=== PATIENT | female | born 1995 | race Caucasian/White ===

== ENCOUNTER 2021-04-09 12:44 | Outpatient (CLI) | payer BC, SELFPAY ==
--- NOTE | ~2021-04-09 | US_ITS ---
EXAMINATION: US OB /maternal detail DATE: 04/09/2021 14:10 INDICATION: survey TECHNIQUE: Multiple obstetric sonographic images performed. FINDINGS: No prior studies for comparison. There is a single living fetus in breech presentation. The placenta is posterior without placenta pr evia. Amniotic fluid volume is subjectively normal. cardiac activity and movement is noted with a heart rate of 1:30 beats per minute. The following anatomy was identified as normal: 4 chamber heart 3 vessel cord cord insertion kidneys urinary bladder stomach spine diaphragm ventricles cisterna magna cerebellum The following biometric data were obtained: BPD: 55mm corresponds to gestational age 22 weeks 6 days. Head circumference: 207 mm corresponds to gestational age 22 weeks 6 days. Abdominal circumference: 182 mm corresponds to gestational age 23 weeks 0 days. Femur length: 39 mm corresponds to gestational age 22 weeks 3 days. Head circumference to abdominal circumference ratio: 1.14 (normal range for expected gestational age is 1.05-1.21). Estimated weight: 534 grams +/- 80 grams using Hadlock method, 32%. IMPRESSION: 1: Single living intrauterine with an estimated gestational age of 22weeks 6days by current ultrasound measurements, with an EDC of 08/07/2021 in breech presentation. 2. Normal survey. Reviewed, dictated and finalized at location A. CAR ATTENDANT IMPRESSION: 1: Single living intrauterine with an estimated gestational age of 22 weeks 6days by current ultrasound measurements, with an EDC of 08/07/2021 in wilder ech presentation. 2. Normal survey.
== END 2021-04-09 12:45 | disposition home or self-care (01) ==
LOC: ANHIMG 12:52
PROVIDERS: Visit Provider Obstetrics & Gynecology
DX: Z34.92 Encounter for supervision of normal pregnancy, unspecified, second trimester (principal); Z3A.22 22 weeks gestation of pregnancy
CPT/HCPCS: 76805

== ENCOUNTER 2021-07-23 13:09 | Outpatient (CLI) | payer BC, SELFPAY ==
[2021-07-23 19:32] LABS: Basophils Percent Auto 0.3 % (0.2-1.2); Eosinophils Absolute Auto 0.1 K/mm3 (0-0.3); Eosinophils Percent Auto 1.1 % (0-4.4); Hematocrit 41.4 % (37.0-47.0); Hemoglobin 14.3 g/dL (12.0-15.0); Immature Granulocyte Absolute 0.04 K/mm3 (0.00-0.031); Immature Granulocyte Percent A 0.4 % (0-0.5); Lymphocytes Absolute Auto 1.43 K/mm3 (0.9-3.2); Lymphocytes Percent Auto 13.4 % (18.3-44.2); Mean Corpuscular HGB Conc 34.5 g/dl (32-36); Mean Corpuscular Hemoglobin 32.6 pg (26-34); Mean Corpuscular Volume 94.3 fl (80-100); Mean Platelet Volume 11.8 fl (7.4-10.4); Monocytes Absolute Auto 0.5 K/mm3 (0.1-0.6); Monocytes Percent Auto 4.6 % (2.6-8.5); Neutrophils Absolute Auto 8.6 K/mm3 (1.3-6.7); Neutrophils Percent Auto 80.2 % (45.5-73.1); Platelet Count Result 189 k/mm3 (150-375); Red Blood Count 4.39 M/mm3 (4.2-5.4); Red Cell Distribution Width 13.1 % (11.5-14.5); White Blood Count 10.7 K/mm3 (4.5-10.0)
[2021-07-23 19:40] LABS: Glucose 1 Hour PP 50gm Dose 84 mg/dL
[2021-07-23 21:04] LABS: HIV 1/2 Ab P24 Ag Result Negative (Negative)
[2021-07-23 21:43] LABS: Hepatitis C Virus Antibody Negative (Negative)
[2021-07-24 08:25] LABS: Rapid Plasma Reagin Non-Reactive (NonReactive)
[2021-07-24] MEDS: RHO(D) IMMUNE GLOBULIN 300 MCG/2 ML SYRINGE IM (14:55)
== END 2021-07-23 13:10 | disposition home or self-care (01) ==
PROVIDERS: Visit Provider Obstetrics & Gynecology
DX: Z34.90 Encounter for supervision of normal pregnancy, unspecified, unspecified trimester (principal); Z3A.00 Weeks of gestation of pregnancy not specified
CPT/HCPCS: 36415; 82947; 85025; 85461; 86592; 86703; 86803; 90384; 96372; G0432; J2790

== ENCOUNTER 2021-07-30 15:17 | Outpatient (CLI) | payer BC, SELFPAY ==
--- NOTE | ~2021-07-30 | US_ITS ---
EXAMINATION: US OB follow up DATE: 07/30/2021 16:31 INDICATION: Evaluate growth TECHNIQUE: Real-time transabdominal obstetric ultrasound. FINDINGS: Comparison ultrasound dated 04/09/2021 There is a single living fetus in vertex presentation. The placenta is posterior without placenta pr evia. cardiac activity and movement is noted with a heart rate of 134 beats per minute. T he amniotic fluid volume is normal. NESHA measures 16.3 cm. The following biometric data were obtained: BPD: 86mm corresponds to gestational age 34 weeks 4 days. Head circumference: 318mm corresponds to gestational age 35 weeks 5 days. Abdominal circumference: 305mm corresponds to gestational age 34 weeks 3 days. Femur length: 71mm corresponds to gestational age 36 weeks 3 days. Estimated weight: 2605grams +/- 391grams, 3.2% using Hadlock method. IMPRESSION: 1. Single living intrauterine in vertex presentation with an estimated gestational age of 38 weeks 6 days by inititial ultrasound. Decreased interval growth with current measurements co rresponding to 35 week 2 day gestation. Estimated weight corresponds to 3.2%, small for gestati onal age. 2. Normal placenta. Reviewed, dictated and finalized at location B. IMPRESSION: 1. Single living intrauterine in vertex presentation with an estimat ed gestational age of 38 weeks 6 days by inititial ultrasound. Decreased interv al growth with current measurements corresponding to 35 week 2 day gestat ion. Estimated weight corresponds to 3.2%, small for gestational age. 2. Normal placenta.
== END 2021-07-30 15:18 | disposition home or self-care (01) ==
LOC: ANHIMG 15:19
PROVIDERS: Visit Provider Obstetrics & Gynecology
DX: O36.5930 Maternal care for other known or suspected poor fetal growth, third trimester, not applicable or unspecified (principal); Z3A.35 35 weeks gestation of pregnancy
CPT/HCPCS: 76816

== ENCOUNTER 2021-07-31 14:19 | Inpatient (IN) | payer BC, SELFPAY ==
[2021-07-31] VITALS (21 sets, daily range): BP systolic 104–136; BP diastolic 63–98; PULSE 47–119; RESP 14–18; TEMP 36.7–37.4; BMI 34.8
[2021-07-31 15:30] LABS: Basophils Absolute Auto 0.1 K/mm3 (0.0-0.1); Basophils Percent Auto 0.5 % (0.2-1.2); Eosinophils Absolute Auto 0.1 K/mm3 (0-0.3); Eosinophils Percent Auto 1.2 % (0-4.4); Hematocrit 40.9 % (37.0-47.0); Immature Granulocyte Absolute 0.03 K/mm3 (0.00-0.031); Immature Granulocyte Percent A 0.3 % (0-0.5); Lymphocytes Absolute Auto 1.39 K/mm3 (0.9-3.2); Lymphocytes Percent Auto 14.2 % (18.3-44.2); Mean Corpuscular HGB Conc 34.2 g/dl (32-36); Mean Corpuscular Hemoglobin 32.6 pg (26-34); Mean Corpuscular Volume 95.3 fl (80-100); Mean Platelet Volume 10.9 fl (7.4-10.4); Monocytes Absolute Auto 0.6 K/mm3 (0.1-0.6); Monocytes Percent Auto 5.8 % (2.6-8.5); Neutrophils Absolute Auto 7.7 K/mm3 (1.3-6.7); Platelet Count Result 189 k/mm3 (150-375); Red Blood Count 4.29 M/mm3 (4.2-5.4); Red Cell Distribution Width 13.2 % (11.5-14.5); White Blood Count 9.8 K/mm3 (4.5-10.0)
--- NOTE | 2021-07-31 15:34 | PM.IMHP ---
H&P: HPI History of Present Illness Date/Time: 07/31/21 15:34 G1 at 39+1 sent today for induction of labor due to IUGR on U/S yesterday (EFW 3%tile). No complaints. Occasional contractions. Normal movement. No bleeding or leaking fluid Chief Complaint: IUGR Review of Systems Review of Systems: All systems reviewed & are unremarkable except as noted in HPI and below PMFSH Past Medical History Medical History No active medical problems Surgical History Surgical History No pertinent past surgical history Family History Family History Father Alcoholism Mother Alcoholism Asthma Anxiety and depression Grandparent Anxiety and depression Social History Social History Smoking status: Never smoker Alcohol intake: never Substance use: never Agree to blood products: Yes Meds Home Medications and Allergies Home Medications Medication Instructions Recorded Confirmed Type ascorbate calcium (vitamin C) 500 500 mg PO DAILY 07/23/21 07/30/21 History mg tablet calcium carbonate 500 mg calcium 500 mg PO DAILY 07/23/21 07/30/21 History (1,250 mg) chewable tablet nausea medication PO 07/23/21 07/30/21 History prenat.vits,annalee,oxo-kvhq-ornoi 1 tablet PO DAILY 07/23/21 07/30/21 History Allergies Allergy/AdvReac Type Severity Reaction Status Date / Time No Known Allergies Allergy Verified 07/30/21 10:37 Vital Signs Vital Signs - 24 hr 07/31/21 14:53 07/31/21 15:01 07/31/21 15:31 Pulse Rate 64 67 77 Blood Pressure 130/81 127/82 124/91 H Exam Const: General: healthy appearing, no acute distress, alert and awake Resp: Auscultation: clear to auscultation bilaterally Cardio: Rate: regular rate Rhythm: regular rhythm GI: Inspection: non-distended GI Palp: Yes Soft to palpation and No Tenderness to palpation present (GI) : Manual OB Exam: dilated 1 cm, effaced 25% and station -2 Extrem: General: no pedal edema and no calf tenderness Psych: Mental Status: mental status grossly normal H&P: Results Labs Labs: Short CBC 07/31/21 Range/Units 15:16 WBC 9.8 (4.5-10.0) K/mm3 Hgb 14.0 (12.0-15.0) g/dL Hct 40.9 (37.0-47.0) % Plt Count 189 (150-375) k/mm3 Assessment and Plan Assessment and plan (1) Intrauterine growth restriction (IUGR) affecting care of mother, third trimester, single gestation: Code(s): O36.5930 - Maternal care for other known or suspected poor growth, third trimester, not applicable or unspecified Status: Acute Assessment and Plan: Start pitocin for induction of labor. GBS+ so start antibiotics. Fetus reassuring so far. Plan continuous monitoring. Patient agrees to plan and all questions answered.
[2021-07-31] MEDS: AMPICILLIN 2 GM/NS 100 ML 2 GM/100 ML BAG IVPB (15:55)
[2021-07-31] MEDS: OXYTOCIN 30 UNITS/NS 500 ML 30 UNITS/500 ML BAG 6 UNITS IV CONT (15:55)
[2021-07-31] MEDS: LACTATED RINGERS 1,000 ML 125 ML IV CONT ×2 (15:56→22:41)
[2021-07-31 16:30] LABS: HIV 1/2 Ab P24 Ag Result Negative (Negative)
--- NOTE | 2021-07-31 17:02 | WPDANESEPP ---
Anes - Eval Pre Procedure Procedure: labor epidural Date/Time: 07/31/21 17:02 Surgeon: hank Preop Diagnosis: pain during labor Pre Op Diagnosis: Induction of Labor Patient Data Age: 25 Gender: F Height: Weight: Last Vital Signs Temp 37.4 C 07/31/21 15:30 Pulse 53 L 07/31/21 17:01 BP 114/78 07/31/21 17:01 Allergies Allergy/AdvReac Type Severity Reaction Status Date / Time No Known Allergies Allergy Verified 07/30/21 10:37 Home Medications Medication Instructions Recorded Confirmed Type ascorbate calcium (vitamin C) 500 500 mg PO DAILY 07/23/21 07/31/21 History mg tablet calcium carbonate 500 mg calcium 500 mg PO DAILY 07/23/21 07/31/21 History (1,250 mg) chewable tablet prenat.vits,annalee,nbo-faeo-bhayv 1 tablet PO DAILY 07/23/21 07/31/21 History Laboratory Tests 07/31/21 07/31/21 07/31/21 15:16 15:16 15:16 WBC 9.8 K/mm3 K/mm3 (4.5-10.0) RBC 4.29 M/mm3 M/mm3 (4.2-5.4) Hgb 14.0 g/dL g/dL (12.0-15.0) Hct 40.9 % % (37.0-47.0) MCV 95.3 fl fl (80-100) MCH 32.6 pg pg (26-34) MCHC 34.2 g/dl g/dl (32-36) RDW 13.2 % % (11.5-14.5) Plt Count 189 k/mm3 k/mm3 (150-375) MPV 10.9 fl H fl (7.4-10.4) Immature Gran % (Auto) 0.3 % % (0-0.5) Neut % (Auto) 78.0 % H % (45.5-73.1) Lymph % (Auto) 14.2 % L % (18.3-44.2) [place] % (Auto) 5.8 % % (2.6-8.5) Eos % (Auto) 1.2 % % (0-4.4) Baso % (Auto) 0.5 % % (0.2-1.2) Lymph # (Auto) 1.39 K/mm3 K/mm3 (0.9-3.2) [place] # (Auto) 0.6 K/mm3 K/mm3 (0.1-0.6) Eos # (Auto) 0.1 K/mm3 K/mm3 (0-0.3) Baso # (Auto) 0.1 K/mm3 K/mm3 (0.0-0.1) Abs Immat Gran (auto) 0.03 K/mm3 K/mm3 (0.00-0.031) Absolute Neuts (auto) 7.7 K/mm3 H K/mm3 (1.3-6.7) Absolute Nucleated RBC 0.0 K/mm3 K/mm3 (0.0-0.012) Nucleated RBC % 0.0 % % (0.0-0.2) Urine Opiates Screen Urine Methadone Screen Ur Barbiturates Screen Ur Phencyclidine Scrn Ur Amphetamine Screen U Benzodiazepines Scrn Urine Cocaine Screen U Cannabinoids Screen RPR Pending HIV 1&2 Ab/P24 Ag 4thGn Negative (Negative) Blood Type Antibody Screen Antibody Identification Antigen Identification CORA, IgG Interpret CORA, Poly Interpret CORA, Complement Interp 07/31/21 07/31/21 15:16 16:14 WBC RBC Hgb Hct MCV MCH MCHC RDW Plt Count MPV Immature Gran % (Auto) Neut % (Auto) Lymph % (Auto) [place] % (Auto) Eos % (Auto) Baso % (Auto) Lymph # (Auto) [place] # (Auto) Eos # (Auto) Baso # (Auto) Abs Immat Gran (auto) Absolute Neuts (auto) Absolute Nucleated RBC Nucleated RBC % Urine Opiates Screen Pending Urine Methadone Screen Pending Ur Barbiturates Screen Pending Ur Phencyclidine Scrn Pending Ur Amphetamine Screen Pending U Benzodiazepines Scrn Pending Urine Cocaine Screen Pending U Cannabinoids Screen Pending RPR HIV 1&2 Ab/P24 Ag 4thGn Blood Type O Negative Antibody Screen Positive Antibody Identification Pending Antigen Identification Pending CORA, IgG Interpret Pending CORA, Poly Interpret Pending CORA, Complement Interp Pending Patient hx anesthesia problems: none Family hx anesthesia problems: none Results Review: All pre-operative results and documents have been reviewed as part of the p
[2021-07-31 17:23] LABS: Amphetamine Screen Urine Negative (Negative); Barbiturate Screen Urine Negative (Negative); Benzodiazepines Screen Urine Negative (Negative); Cannabinoid Screen Urine Positive (Negative); Cocaine Screen Urine Negative (Negative); Methadone Screen Urine Negative (Negative); Opiate Screen Urine Negative (Negative); Phencyclidine Screen Urine Negative (Negative)
[2021-07-31] MEDS: AMPICILLIN 1 GM/NS 50 ML 1 GM/50 ML BAG IVPB (19:58)
[2021-07-31] MEDS: ACETAMINOPHEN 500 MG TABLET 1000 MG PO (23:10)
[2021-08-01] VITALS (160 sets, daily range): BP systolic 78–150; BP diastolic 44–99; PULSE 37–206; RESP 14–20; TEMP 36.6–37.2; O2SAT 83–100
[2021-08-01] MEDS: AMPICILLIN 1 GM/NS 50 ML 1 GM/50 ML BAG IVPB ×3 (00:12→08:04)
[2021-08-01] MEDS: ONDANSETRON INJ 4 MG/2 ML VIAL IV PUSH (00:44)
[2021-08-01] MEDS: fentaNYL CITRATE INJ (*CRX) 100 MCG/2 ML VIAL 50 MCG IV PUSH (01:41)
[2021-08-01] MEDS: fentaNYL CITRATE INJ (*CRX) 100 MCG/2 ML VIAL IV PUSH ×2 (02:51→03:55)
[2021-08-01] MEDS: LACTATED RINGERS 1,000 ML 125 ML IV CONT ×3 (02:55→10:42)
[2021-08-01 06:08] LABS: Rapid Plasma Reagin Non-Reactive (NonReactive)
--- NOTE | 2021-08-01 07:52 | PM.OBPNLAB ---
Pain Control Date/time seen: 08/01/21 07:52 Pain control: epidural Pelvic Exam Dilation (cm): 4 Effacement (%): 50 station: -2 Amniotic membrane status: Ruptured (AROM with copious clear fluid) Contractions Monitor mode: Internal (IUPC just placed) Contraction frequency: 3 Contraction pattern: Regular Status status: Category ll Assessment and Plan Assessment: induction ongoing Plan: continuous present management
[2021-08-01] MEDS: ceFAZolin 2 GM/D5W 50 ML 2 GM/50 ML BAG IVPB (09:08)
--- NOTE | 2021-08-01 09:11 | WPDHPUPDATE1 ---
History and Physical Update Update Date/Time: 08/01/21 09:11 History and Physical has been reviewed, including an updated exam of the patient. Fetus having repetitive late decelerations. Cervix /-1. She was advised to proceed with emergent C section, and she agreed and signed consent after risks, benefits, complications, and alternatives discussed. . Risks, benefits, and alternatives have been discussed and questions answered. Patient agrees to proceed with procedure.
--- NOTE | 2021-08-01 09:14 | W.PM.PROC2 ---
Procedure Note - Detailed Date of Procedure 08/01/21 Pre-op Diagnosis Late decelerations, IUGR Post-op Diagnosis Same Procedure Performed Primary LTCS Surgeon Faith Kamara MD Anesthesia Epidural Indications Repetitive late decelerations Findings Female , cephalic, nuchal cord X1, thin meconium; Apgars 9/9; 5# 3oz; normal uterus, tubes, and ovaries Description of Procedure She was taken to the operating room where her epidural anesthesia was found be adequate. She was prepared and draped in the normal sterile fashion in the dorsal supine position with a leftward tilt. Pfannenstiel skin incision was made and extended to the underlying layer of fascia with the scalpel. The fascia was incised in the midline with the scalpel and extended laterally with [place] scissors. The underlying rectus muscles were dissected off bluntly and sharply. The peritoneum was entered sharply and extended inferiorly and superiorly with good visualization of the bladder. The bladder blade was inserted. The lower uterine segment was incised in a transverse fashion with the scalpel. The incision was digitally stretched in a cephalocaudal direction. Thin meconium fluid was noted. The infant's head was delivered atraumatically. A loose nuchal cord x1 was reduced easily. The shoulders and body were delivered easily. The cord was clamped and cut. The infant was passed to the waiting nurse. Cord gas and cord blood was obtained. The placenta was manually extracted. The uterus was exteriorized and cleared of all clots and debris. The uterine incision was closed using 0 Vicryl Vicryl in a running locked fashion. The uterine incision was found to be hemostatic. The uterus was returned to the abdomen. The gutters were cleared of all clots and debris. The uterine incision was reinspected and still found to be hemostatic. The rectus muscles were inspected. Any bleeding points were cauterized. The rectus muscles were reapproximated using an 0 Vicryl rtsylf-sn-noify suture. The fascia was then closed using 0 Vicryl in a running fashion. The subcutaneous tissue was irrigated. Any bleeding points were cauterized. The skin was closed using Insorb absorbable dominique. She tolerated the procedure well. Sponge, lap, needle, and instrument counts were correct x2. She was taken to the recovery room in stable condition. Estimated Blood Loss 270 Drains Yes (Rico) Packing No Pathology Yes Complications No immediate complications Condition Stable Disposition Floor
[2021-08-01] MEDS: KETOROLAC 30 MG/ML VIAL (*BKC) 15 MG IV PUSH (09:39)
--- NOTE | 2021-08-01 12:05 | OBPPTRN ---
Patient transferred to post room # 287 via stretcher. Oriented to unit, room, information board, rooming in, admission packet and security measures. Patient verbalizes understanding.
--- NOTE | 2021-08-01 14:52 | PC.NURSE ---
Counseled with pt regarding her choice to breastfeed. 's blood sugar was 63 prior to attempting to latch. placed in cross cradle position on left breast with no interest or cues present. Mother was able to hand express several drops of colostrum into spoon and fed to . Breast pump provided and educated regarding use q 3 hours x 15 -20 minutes if infant does not latch starting and finishing session with hand expression. Mother fit with 27mm flange to right breast and 24mm flange to left breast for optimal comfort. Mother pumped x 15 minutes which resulted in 4.3 ml colostrum that was syringe fed to . Discussed with mother that medically pt is stable and requires no larger volume of intake. Infant is less than 24 hours old and will continue to monitor effectiveness of latching. Discussed avoidance of artificial nipples or pacifiers for 3-4 weeks unless medically necessary to protect milk supply. Mother's left nipple in inverted and right nipple is flat/ very shallow. Mother states that infant did latch after to left inverted nipple with no use of a shield. Mother know to follow infant feeding cues and unswaddle and attempt to awaken at 3 hours for feeding attempt in infant not showing cues at that point. Parents verbalized understanding of information presented. Instructed to call out prior to feedings x 24 hours for blood sugar checks prior to putting infant to breast.
[2021-08-01] MEDS: DEXTROSE 5%/0.45% SOD CHL 1,000 ML 125 ML IV CONT (16:24)
[2021-08-01] MEDS: DOCUSATE SODIUM 100 MG CAPSULE PO (16:24)
[2021-08-02] MEDS: SIMETHICONE 80 MG TAB.CHEW PO ×3 (03:10→12:06)
[2021-08-02] MEDS: IBUPROFEN 600 MG TABLET PO ×3 (03:10→19:55)
[2021-08-02 04:00] VITALS: BP 125/91; PULSE 70; RESP 18; TEMP 36.9; O2SAT 100
[2021-08-02] MEDS: DOCUSATE SODIUM 100 MG CAPSULE PO ×2 (07:38→16:26)
[2021-08-02] MEDS: MULTIVIT/MIN/PREN/FOL AC/IRON TABLET 1 TAB PO (07:38)
[2021-08-02] MEDS: HYDROcodone/acetaminophen (*CRX) 5-325 MG TABLET 1 TAB PO ×3 (07:39→19:55)
[2021-08-02 07:49] LABS: Basophils Percent Auto 0.3 % (0.2-1.2); Eosinophils Absolute Auto 0.1 K/mm3 (0-0.3); Eosinophils Percent Auto 0.7 % (0-4.4); Hematocrit 34.4 % (37.0-47.0); Hemoglobin 11.5 g/dL (12.0-15.0); Immature Granulocyte Absolute 0.12 K/mm3 (0.00-0.031); Immature Granulocyte Percent A 1.1 % (0-0.5); Lymphocytes Absolute Auto 1.57 K/mm3 (0.9-3.2); Lymphocytes Percent Auto 14.1 % (18.3-44.2); Mean Corpuscular HGB Conc 33.4 g/dl (32-36); Mean Corpuscular Hemoglobin 32.7 pg (26-34); Mean Corpuscular Volume 97.7 fl (80-100); Mean Platelet Volume 11.8 fl (7.4-10.4); Monocytes Absolute Auto 0.8 K/mm3 (0.1-0.6); Monocytes Percent Auto 6.7 % (2.6-8.5); Neutrophils Absolute Auto 8.6 K/mm3 (1.3-6.7); Neutrophils Percent Auto 77.1 % (45.5-73.1); Platelet Count Result 170 k/mm3 (150-375); Red Blood Count 3.52 M/mm3 (4.2-5.4); Red Cell Distribution Width 13.2 % (11.5-14.5); White Blood Count 11.2 K/mm3 (4.5-10.0)
--- NOTE | 2021-08-02 07:56 | PM.OBPNVD ---
OB - PN: Subj Subjective Date/time seen: 08/02/21 07:56 Patient comments: no complaints, pain well controlled, incisional pain, tolerating diet and other (Lochia similar to menses); no flatus present [place] baby status: doing well OB - PN: Obj Data Labs CBC & Chem 7: 08/02/21 03:01 Labs: Laboratory Results - last 24 hr 08/02/21 03:01 WBC 11.2 H RBC 3.52 L Hgb 11.5 L Hct 34.4 L MCV 97.7 MCH 32.7 MCHC 33.4 RDW 13.2 Plt Count 170 MPV 11.8 H Immature Gran % (Auto) 1.1 H Neut % (Auto) 77.1 H Lymph % (Auto) 14.1 L [place] % (Auto) 6.7 Eos % (Auto) 0.7 Baso % (Auto) 0.3 Lymph # (Auto) 1.57 [place] # (Auto) 0.8 H Eos # (Auto) 0.1 Baso # (Auto) 0.0 Abs Immat Gran (auto) 0.12 H Absolute Neuts (auto) 8.6 H Absolute Nucleated RBC 0.0 Nucleated RBC % 0.0 OB - PN A/P Plan day: 1 (s/p C section, doing well) Plan: routine care Time Spent With Patient Time: Total time spent is greater than 50% in coordination of care (as documented) at patient's floor/unit and/or counseling patient: Exam Const: General: no acute distress Resp: Auscultation: clear to auscultation bilaterally Cardio: Rate: regular rate Rhythm: regular rhythm GI: Inspection: non-distended, incision (Intact without erythema, drainage, or induration) and other (Fundus firm and nontender at umbilicus) GI Palp: Yes abdominal tenderness (appropriate ) and Yes Soft to palpation Extrem: General: no edema
[2021-08-02 08:05] VITALS: BP 123/78; PULSE 77; RESP 16; TEMP 36.6; O2SAT 100
--- NOTE | 2021-08-02 11:12 | WPDANLDPN2 ---
Anes-Prog Note L&D Date/Time: 08/02/21 11:12 Comfortable throughout: labor and section Neuraxial method: epidural Epidural/Spinal procedure site: clean & non-tender Neuro status: Neuro function grossly intact. Cardiovascular status: normal Respiratory status: normal Airway patency: baseline Mental status: baseline Post-Op hydration status: normal Vital Signs: Last Vital Signs Temp 36.6 C 08/02/21 08:05 Pulse 77 08/02/21 08:05 Resp 16 08/02/21 08:05 BP 123/78 08/02/21 08:05 Pulse Ox 100 08/02/21 08:05 Pain score (VAS): 3 I/O: Intake & Output 08/01/21 08/02/21 08/02/21 23:59 07:59 15:59 Intake Total 800 800 Output Total 1225 500 Balance -425 300 Post-procedural complaints: none Patient feedback: Patient satisfied with anesthetic care.
--- NOTE | 2021-08-02 11:12 | WPDANLDNPN2 ---
Anes-Prog Note L&D-Neuraxial Date/Time: 08/02/21 11:12 Neuraxial medications: epidural PF morphine Opiod-related complaints: none Patient feedback: Patient satisfied with post-operative pain management.
--- NOTE | 2021-08-02 12:13 | PC.NURSE ---
Breast pump provided prior to my assessment. Mom states that at this time she plans to pump and not put the baby to breast. Reviewed information regarding pump care, hand washing, nipple care and pumping 8 times in 24 hours (1-2 at night) for 10-15 minutes. Collection and storage of breastmilk per mom and baby guide. Encouraged mom to place skin to skin, breast massage and use hand expression and/or a breast pump in a relaxing atmosphere. Reviewed recording pumping schedule on the feeding sheet or pumping log. Referred to the visual handout along with the mom and baby guide as a resource and when to call a provider. Reported to primary RN.
--- NOTE | 2021-08-02 15:16 | PCCCNOTE ---
Care Coordination Consult: Met with pt. and KIM Fitzpatrick. This is their first child. They have all necessary equipment at home for baby including a crib, carseat, clothing, diapers, and bottles. Pt. plans to breastfeed and supplemental bottle feed. Pt. is current with [facility] services and will add baby at discharge. resources provided. Spoke with pt. who reports recreational marijuana use during . She reports she used marijuana due to nausea, does not plan to use at discharge. Denies any other substance use. Denies any resources for substance use. Per employee health nurse is not going to be tested. Pt. denies any other needs.
--- NOTE | 2021-08-02 16:25 | PC.NURSE ---
Patient viewed the discharge video Mother & Baby Care, The First Two Weeks . Patient was given the opportunity and encouraged to ask questions. Patient verbalized understanding of information shared and has been given the mother/baby guide for home reference.
[2021-08-02 20:00] VITALS: BP 124/88; PULSE 80; RESP 16; TEMP 36.7; O2SAT 100
[2021-08-02] MEDS: TETANUS,DIPHTHERIA,AC PERTUSSIS ADULT (0.5 ML) BOOSTRIX IM (20:07)
[2021-08-03] MEDS: IBUPROFEN 600 MG TABLET PO ×2 (02:41→08:34)
[2021-08-03 07:44] VITALS: BP 108/75; PULSE 68; RESP 20; TEMP 36.8
[2021-08-03] MEDS: MULTIVIT/MIN/PREN/FOL AC/IRON TABLET 1 TAB PO (08:34)
[2021-08-03] MEDS: SIMETHICONE 80 MG TAB.CHEW PO (08:34)
[2021-08-03] MEDS: DOCUSATE SODIUM 100 MG CAPSULE PO (08:34)
[2021-08-03] MEDS: HYDROcodone/acetaminophen (*CRX) 5-325 MG TABLET 1 TAB PO (08:35)
--- NOTE | 2021-08-03 09:18 | PM.OBPNVD ---
OB - PN: Subj Subjective Date/time seen: 08/03/21 09:18 She states she feels well. tolerating reg food, ambulating well, no leg pain. No emesis. Mild lochia. Baby is doing well. Positive flatus. OB - PN: Obj Data Labs CBC & Chem 7: 08/02/21 03:01 OB - PN A/P Assessment and Plan (1) Delivery by section: Status: Acute Assessment and Plan: POD2. She is doing well. She wishes to be discharged. Discharge precautions discussed. Time Spent With Patient Time: Total time spent is greater than 50% in coordination of care (as documented) at patient's floor/unit and/or counseling patient: Exam Const: General: comfortable and no acute distress Resp: Effort & Inspection: normal respiratory effort GI: Other: incision intact clean dry, fundus below umbilicus firm Extrem: Other: nontender Psych: Mental Status: mental status grossly normal Affect: normal affect
--- NOTE | 2021-08-03 09:24 | PM.OBDSVD ---
DS: Admitting Diagnosis Discharge Date 08/03/2021 Admitting Diagnosis Intrauterine growth restriction DS: Discharge Diagnosis Discharge Diagnosis (1) Intrauterine growth restriction (IUGR) affecting care of mother, third trimester, single gestation: Code(s): O36.5930 - Maternal care for other known or suspected poor growth, third trimester, not applicable or unspecified Status: Acute (2) Non-reassuring cardiotocographic tracing: Code(s): O36.8390 - Maternal care for abnormalities of the heart rate or rhythm, unspecified trimester, not applicable or unspecified Status: Acute (3) Delivery by section: Status: Acute OB - DS: Summary Hospital Course Hospital Course: Patient was admitted by Dr. Kamara to L and D on 07/31/2021 for medical induction of labor for intrauterine growth restriction at the 3rd percentile. Her labor was significanf for decelerations, nonreassuring tracing and she was recommended for delivery via ceserean section. She underwent an uncomplicated primary ceserean section. Postop day one she was doing well, had adequate pain control and was ambulating. She did not have flatus. She was tolerating regular food. By postop day 2 she had had flatus, was ambulating well, tolerating regular food and had adequate pain control with oral pain medications. Lochia light. Incision was healing well. She was discharged to home with precautions on postop day 2. OB Procedures : Ultrasound OB Procedures Intrapartum: OB Procedures: : None Peripartum Data Infant Delivery Method: Section Procedures: Procedures Operation Date: 08/01/21 09:00 Actual Procedure Side Surgeon p Section Em Kamara MD complications: none Status at Discharge Functional status at discharge: independent ambulation Time Spent with Patient Time attestation: Total time spent providing and/or coordinating discharge services: Exam Const: General: cooperative Orientation/consciousness: oriented to person, oriented to place and oriented to time HENMT: General nose exam: Normal external nose present Eyes: General: appearance normal, both eyes and all related structures Resp: Effort & Inspection: normal respiratory effort GI: Inspection: normal to inspection : Other: incision intact Skin: General skin exam: normal color Neuro: General: oriented to person, oriented to place and oriented to time Extrem: General: normal to inspection and no calf tenderness Psych: Appearance: grossly normal Mental Status: mental status grossly normal DS: Data Data Completed and Pending Pending studies at discharge: Pending at discharge 08/01/21 10:52 Surgical [PTH] Routine Discharge Plan Discharge Attending physician on discharge: em luo Discharging Clinician: Kurtis Horn Anticipated Discharge Date/Time: 08/03/21 09:22 Patient Disposition: Home, Self-Care Activity: may shower, may drive after 2 weeks and pelvic rest Diet: regular Discharge Instructions: Post ceserean section precautions. Pelvic rest for 4-6 weeks. May take over the counter Ibuprofen or Tylenol for pain. Take prescription medication for pain greater than 5. Call if saturating more than a pad an hour, leg redness, pain and swelling, temperature>100.4. Redness or drainage from incision. No strenuous activity. Education: Mom and Baby Guide Given to: Mother Follow-Up: Call your delivering provider's office for an appointment to be seen in: 4-6 Week Mom and baby should come to the [facility] for the follow-up appointment. Appointment Date/Time: Thursday, August 05, 2021 at 10:00 am What to expect at your follow-up visit: Blood Pressure Check Physical Assessment Call [phone] if you are unable to keep your appointment time. BREAST CARE: * Wear a snug supportive bra. * For engorgement discomfort:
--- NOTE | 2021-08-03 10:01 | PC.NURSE ---
Self care and infant care discharge instructions given including follow up visit date and time. Pt.verbalized understanding. No questions or concerns voiced. Very pleasant and cooperative. FOB at side.
== END 2021-08-03 10:40 | disposition home or self-care (01) | DRG 540 ==
LOC: ANHLDR 08-01 09:23 → ANHOB2 08-01 13:56 → ANHLDR 08-06 09:09 → ANHOB2 08-06 09:09
PROVIDERS: Admitting Provider Obstetrics & Gynecology; Visit Provider Obstetrics & Gynecology
PROC: 10D00Z1 Extraction of Products of Conception, Low, Open Approach (ICD-10-PCS; CPT 59514; principal; 2021-08-01 09:00)
DX: O36.5930 Maternal care for other known or suspected poor fetal growth, third trimester, not applicable or unspecified (principal); Z37.0 Single live birth; Z3A.39 39 weeks gestation of pregnancy; O99.824 Streptococcus B carrier state complicating childbirth; O36.8330 Maternal care for abnormalities of the fetal heart rate or rhythm, third trimester, not applicable or unspecified; O69.81X0 Labor and delivery complicated by cord around neck, without compression, not applicable or unspecified; O77.0 Labor and delivery complicated by meconium in amniotic fluid
CPT/HCPCS: 36415; 80307; 85025; 86592; 86703; 86850; 86880; 86900; 86901; 86902; 88307; 90715; A9270; G0432; J0290; J0690; J1885; J2274; J2405; J2590; J2795; J3010; J7120

== ENCOUNTER 2021-08-10 13:09 | Emergency (ER) | payer BC, SELFPAY ==
[2021-08-10 13:16] VITALS: BP 151/98; PULSE 83; RESP 20; TEMP 36.9; O2SAT 99
[2021-08-10 13:27] VITALS: BP 127/92
--- NOTE | 2021-08-10 13:27 | ED.WOUNDLAC ---
HPI - Wound/Laceration General Chief Complaint: Wound/Laceration Stated Complaint: wound check Time Seen by Provider: 08/10/21 13:13 Source: patient Mode of arrival: ambulatory Limitations: no limitations History of Present Illness HPI narrative: 25-year-old female presents today with concerns of small amount of drainage from her section wound. Patient with here on 08/01. States the glue fell off a couple of days ago and her significant other saw today and freaked out. Patient denies fevers, body aches, chills, headache, vision changes, or any other issues. States she feels great. Patient is currently breast-feeding. Related Data Home Medications Medication Instructions Recorded Confirmed ascorbate calcium (vitamin C) 500 500 mg PO DAILY 07/23/21 07/31/21 mg tablet calcium carbonate 500 mg calcium 500 mg PO DAILY 07/23/21 07/31/21 (1,250 mg) chewable tablet prenat.vits,annalee,vex-mmbg-xzmnu 1 tablet PO DAILY 07/23/21 07/31/21 Allergies Allergy/AdvReac Type Severity Reaction Status Date / Time No Known Allergies Allergy Verified 08/10/21 13:23 Review of Systems Review of Systems: CONSTITUTIONAL: Denies fever, chills, or sweats. EYES: Denies visual changes, redness, or discharge. ENT: Denies rhinorrhea, congestion, sore throat, or otalgia. CARDIOVASCULAR: Denies chest pain, palpitations, or edema. RESPIRATORY: Denies cough or dyspnea. GASTROINTESTINAL: Denies abdominal pain, nausea, vomiting, or diarrhea. GENITOURINARY: Denies dysuria or hematuria. SKIN: Surgical wound to pelvic area with small amount of drainage. Denies rash or itching. MUSCULOSKELETAL: Denies back pain, joint pain, or myalgia. NEUROLOGIC: Denies headache, numbness, dizziness, or weakness. PSYCHIATRIC: Denies anxiety or depression. [facility] Past Medical History Medical History IUP (intrauterine ), incidental No active medical problems Obesity Surgical History Surgical History No pertinent past surgical history Family History Family History Father Alcoholism Mother Alcoholism Asthma Anxiety and depression Grandparent Anxiety and depression Social History Social History Smoking status: Never smoker Second hand tobacco smoke exposure: Yes Alcohol intake: never Substance use: current Substance use type: marijuana Spiritual care concerns: No Agree to blood products: Yes Exam Narrative: GENERAL: Well-appearing, well-nourished, and in no acute distress. HEAD: Normocephalic, atraumatic. EYES: PERRLA and EOMI. ENT: Nares clear, no rhinorrhea or epistaxis. Mucous membranes moist. Oropharynx without tonsillar hypertrophy exudate or other lesions. Bilateral TMs pearly walker nonbulging NECK: Supple. No adenopathy or masses. No carotid bruits or JVD CHEST: Clear to auscultation. No respiratory distress. No wheezes rales or rhonchi HEART: Regular rate and rhythm. No murmur heard. Normal peripheral pulses. ABDOMEN: surgical incision to pelvic area. Right area with glue still intact. Left incision without glue. Edges approximated. No redness, warmth, or purulent drainage noted. Appears to be healing well. Soft, nontender, nondistended, normal active bowel sounds. EXTREMITIES: Normal range of motion. No edema. SKIN: Warm, dry, no rash. NEURO: No focal deficits. Alert and oriented x3. PSYCH: Normal mood and affect. Course Vital Signs Vital signs: Vital Signs Temperature 36.9 C 08/10/21 13:16 Pulse Rate 83 08/10/21 13:16 Respiratory Rate 20 08/10/21 13:16 Blood Pressure 151/98 H 08/10/21 13:16 Pulse Oximetry 99 08/10/21 13:16 Temperature 36.9 C 08/10/21 13:16 Pulse Rate 84 08/10/21 14:25 Respiratory Rate
[2021-08-10 13:43] VITALS: BP 121/84
[2021-08-10 14:25] VITALS: BP 122/80; PULSE 84; RESP 16; O2SAT 98
== END 2021-08-10 14:25 | disposition home or self-care (01) ==
LOC: ANHED 13:32
PROVIDERS: Emergency Provider Nurse Practitioner Family; PCP Obstetrics & Gynecology
DX: Z39.2 Encounter for routine postpartum follow-up (principal); Z48.01 Encounter for change or removal of surgical wound dressing; O99.215 Obesity complicating the puerperium; E66.9 Obesity, unspecified
CPT/HCPCS: 99281